=== PATIENT | male | born 1940 | race Hispanic/Latino ===

== ENCOUNTER 2019-02-07 08:11 | Day surgery (SDC) | payer OTHER ==
[~2019-02-07] VITALS: Ht 182.9 cm; Wt 74.4 kg
[~2019-02-07 08:11] MED LIST: ATOR20TA65 PO; CLOP75TA32 PO; DEXL60CA3 PO; ERGO500014 PO; LOSA1TAB37 PO; MECL12.585 PO; METO-408 PO; SODIUM CHLORIDE 0.9% 1000ML 1,000 ML IV ONE; TAMS-1 PO
[2019-02-07 09:10] VITALS: BP 137/71
[2019-02-07] MEDS ORDERED: LIDOCAINE HCL 2% 20ML ONE (09:48)
[2019-02-07] MEDS ORDERED: PROPOFOL 10 MG/ML 20ML VIAL IV ONE (09:50)
[2019-02-07 10:02] VITALS: BP 127/63
[2019-02-07 10:07] VITALS: BP 123/69
[2019-02-07 10:12] VITALS: BP 126/66
[2019-02-07 10:18] VITALS: BP 122/73
== END 2019-02-07 10:32 | disposition home or self-care (01) ==
LOC: ENDO 08:11 → DAH 08:11 → ENDO 10:32
PROVIDERS: ATTEND Internal Medicine
DX: K22.70 Barrett's esophagus without dysplasia (principal); K44.9 Diaphragmatic hernia without obstruction or gangrene; K31.89 Other diseases of stomach and duodenum; I10 Essential (primary) hypertension; K21.9 Gastro-esophageal reflux disease without esophagitis; E78.00 Pure hypercholesterolemia, unspecified; N40.0 Benign prostatic hyperplasia without lower urinary tract symptoms; I25.10 Atherosclerotic heart disease of native coronary artery without angina pectoris; Z90.49 Acquired absence of other specified parts of digestive tract; Z79.899 Other long term (current) drug therapy; Z98.890 Other specified postprocedural states; Z72.89 Other problems related to lifestyle; Z86.010 Personal history of colon polyps; Z86.73 Personal history of transient ischemic attack (TIA), and cerebral infarction without residual deficits
CPT/HCPCS: 43239; A4215; A4221; A4222; A4223; A4606; A4615; A4663; J2704; J3490; J7030